=== PATIENT | female | born 1965 | race Two or more races ===

== ENCOUNTER → 2016-10-29 | Outpatient (CLI) | payer OTHER, MEDICAID ==
--- NOTE | 2016-10-29 10:58 | US ---
Transabdominal and Endovaginal Pelvic Ultrasound Clinical History: 51-year-old female who has been a menstrual for 4 years and had one week of vaginal bleeding 3 weeks ago. She has had some right-sided pain for 3 weeks, and also has a peritoneal dialy sis catheter present. ICD 10 Diagnostic Code: N93.8. TECHNIQUE: A curvilinear 5 MHz transducer was initially used to sonographically evaluate the pelvis, using a full urinary bladder as a window. To better assess the uterine architecture and the adnexal s tructures, endovaginal pelvic sonography was also performed. Color and spectral Doppler were used. Comparison: None available. Findings: Transabdominal Pelvic Sonography: The uterus is slightly retroverted measuring 8.3 x 5.0 x 4.0 cm. Th ere are some peripheral periuterine calcified arcuate arteries.The visualized aspects of the urinary bladder are normal. The right adnexal region is partially obscured by bowel gas, and the right ovary is not identified. There is limited assessment of the left ovary. There is no free fluid. Endovaginal Pelvic Sonography: The endometrium is seen in a limited fashion, and that which is seen m easures 3.3 mm in diameter. Scattered parauterine arcuate vascular calcifications are present. A horacio gn-appearing nabothian cyst is seen at the level of the cervix. The right ovary measures 1.9 x 1.0 x 1.3 cm, and the left ovary measures 1.9 x 1.1 x 1.8 cm, and contains a 10 mm follicle. There is a sep tated otherwise simple-appearing left paraovarian cyst measuring 2.7 x 1.2 x 1.8 cm. The resistive in dex associated with the left ovary is 0.61. There is a tiny amount of free fluid in the pelvic cul-de -sac. The peritoneal dialysis catheter was not identified near the uterus. Impression: 1. Mildly retroverted uterus, with some peripheral parauterine calcifications )likely representing ca lcified arcuate arteries). 2. There is a 2.7 cm left paraovarian cyst with a single septation. There is no evidence of torsion. 3. Tiny amount of free fluid in the pelvic cul-de-sac. 4. Limited visualization of the endometrium. That which is seen appears normal, with a stripe measure ment of 3.3 mm.
== END ==
LOC: CIMAGING 08:13
PROVIDERS: ATTEND Family Medicine
DX: N83.202 Unspecified ovarian cyst, left side (principal); N85.8 Other specified noninflammatory disorders of uterus
CPT/HCPCS: 76856-PO

== ENCOUNTER → 2016-11-13 | Outpatient (CLI) | payer OTHER, MEDICAID | LOC: CIMAGING 16:13 | PROVIDERS: ATTEND Internal Medicine Nephrology | DX: M25.551 Pain in right hip (principal) | CPT/HCPCS: 73502-PO ==

== ENCOUNTER → 2017-01-31 | Outpatient (CLI) | payer OTHER, MEDICAID | LOC: FIMAGING 07:04 | PROVIDERS: ATTEND Physician Assistant | DX: S46.111A Strain of muscle, fascia and tendon of long head of biceps, right arm, initial encounter (principal); S43.439A Superior glenoid labrum lesion of unspecified shoulder, initial encounter; X58.XXXA Exposure to other specified factors, initial encounter ==